=== PATIENT | male | born 1940 | race African-American/Black ===

== ENCOUNTER 2022-06-25 15:04 | Emergency (ER) | payer OTHER ==
[~2022-06-25] VITALS: Ht 167.6 cm; Wt 116.0 kg
[2022-06-25 17:34] LABS: BASOPHILS % 0.5 % (0.0-2.0); EOSINOPHILS % 0.4 % (0.0-5.0); HEMATOCRIT. 37.7 % (42.0-52.0); LYMPHOCYTES % 14.5 % (20.0-50.0); MEAN CORPUSCULAR HEMOGLOBIN 29.7 pg (28.0-32.0); MEAN CORPUSCULAR VOLUME 93.1 fL (80.0-94.0); NEUTROPHILS % 72.6 % (40.0-76.0); PLATELET 280 x1000/uL (130-400); RED BLOOD CELL COUNT 4.05 mill/uL (4.7-6.1); RED CELL DISTRIBUTION WIDTH 16.3 % (11.6-14.6)
[2022-06-25 17:44] LABS: CHLORIDE 116 mEq/L (98-107)
[2022-06-25 17:53] LABS: ETHANOL BLOOD < 10 mg/dL
[2022-06-25] MEDS ORDERED: NITROGLYCERIN OINT 1GM/INCH UDPKT TD NR (18:45)
[2022-06-25] MEDS ORDERED: FUROSEMIDE 40MG/4ML VIAL IVP NR (18:45)
[2022-06-25 19:39] VITALS: BP 215/103
[2022-06-25] MEDS ORDERED: LISINOPRIL 10MG TABLET PO NR (19:45)
[2022-06-25] MEDS ORDERED: AMLODIPINE 5MG TABLET PO NR (19:45)
[2022-06-25] MEDS ORDERED: HYDRALAZINE 20MG/ML VIAL IV ONE ×2 (21:15→22:00)
[2022-06-25] MEDS ORDERED: FUROSEMIDE 40MG/4ML VIAL IVP ONE (21:15)
[2022-06-25 21:20] LABS: *AMPHETAMINES SCREEN URINE NEGATIVE (NEGATIVE); *BARBITURATES SCREEN URINE NEGATIVE (NEGATIVE); *BENZODIAZEPINES SCREEN URINE NEGATIVE (NEGATIVE); *COCAINE SCREEN URINE NEGATIVE (NEGATIVE); CANNABINOID URINE SCREEN NEGATIVE (NEGATIVE); METHADONE URINE SCREEN NEGATIVE (NEGATIVE); OPIATES URINE SCREEN NEGATIVE (NEGATIVE); PHENCYCLIDINE URINE SCREEN NEGATIVE (NEGATIVE)
== END 2022-06-25 21:41 | disposition short-term general hospital (02) ==
LOC: ER 15:04
DX: R53.1 Weakness (principal); N28.9 Disorder of kidney and ureter, unspecified; I11.0 Hypertensive heart disease with heart failure; I50.9 Heart failure, unspecified; E11.9 Type 2 diabetes mellitus without complications; Z20.822 Contact with and (suspected) exposure to COVID-19
CPT/HCPCS: 36415; 71045; 73560; 80053; 80305; 80320; 82962; 83690; 83880; 84484; 85025; 87426; 93005; 93970; 96374; 96375; 96376; 99285; C9803; J0360; J1940; G0480

== ENCOUNTER 2022-07-08 18:56 | Emergency (ER) | payer OTHER ==
[~2022-07-08] VITALS: Ht 177.8 cm; Wt 118.0 kg
[2022-07-08 20:08] LABS: BASOPHILS % 0.7 % (0.0-2.0); HEMATOCRIT. 36.4 % (42.0-52.0); HEMOGLOBIN. 11.5 g/dL (14.0-18.0); LYMPHOCYTES % 10.2 % (20.0-50.0); MEAN CORPUSCULAR HEMOGLOBIN 29.8 pg (28.0-32.0); MEAN CORPUSCULAR VOLUME 93.8 fL (80.0-94.0); MEAN PLATELET VOLUME 9.3 fl (7.4-10.4); MONOCYTES % 12.5 % (2.0-8.0); NEUTROPHILS % 74.6 % (40.0-76.0); PLATELET 304 x1000/uL (130-400); RED BLOOD CELL COUNT 3.88 mill/uL (4.7-6.1); RED CELL DISTRIBUTION WIDTH 16.1 % (11.6-14.6)
[2022-07-08 20:20] LABS: CHLORIDE 112 mEq/L (98-107)
[2022-07-09 09:45] VITALS: BP_SYST 176
[2022-07-09] MEDS ORDERED: ACETAMINOPHEN 325MG TABLET PO ONE (11:45)
[2022-07-09 12:11] VITALS: BP_DIAS 74
== END 2022-07-09 12:07 | disposition home or self-care (01) ==
LOC: ER 18:56
DX: R53.1 Weakness (principal); N18.6 End stage renal disease; E11.9 Type 2 diabetes mellitus without complications; I10 Essential (primary) hypertension; I12.0 Hypertensive chronic kidney disease with stage 5 chronic kidney disease or end stage renal disease; E11.22 Type 2 diabetes mellitus with diabetic chronic kidney disease
CPT/HCPCS: 36415; 71045; 73610; 80053; 85025; 93005; 99285